=== PATIENT | female | born 2000 | race Caucasian/White ===

== ENCOUNTER → 2019-12-14 09:44 | Outpatient (BNVA) | payer BC, SELFPAY | PROVIDERS: Family Provider Nurse Practitioner Family; PCP Nurse Practitioner Family; Visit Provider Nurse Practitioner Women's Health | DX: Z30.9 Encounter for contraceptive management, unspecified (principal); Z30.46 Encounter for surveillance of implantable subdermal contraceptive | CPT/HCPCS: 81025 ==

== ENCOUNTER 2020-04-07 12:40 | Emergency (ER) | payer BC, SELFPAY ==
[2020-04-07 12:44] VITALS: BP 138/88; PULSE 108; RESP 16; TEMP 36.8; O2SAT 97; BMI 19.8
[2020-04-07 13:13] LABS: Basophils # 0.1 10^3/uL (0.0-0.1); Basophils % 0.6 %; Eosinophils # 0.1 10^3/uL (0.0-0.8); Eosinophils % 0.7 %; Hematocrit 44.7 % (37.0-47.0); Hemoglobin 14.4 g/dL (11.5-15.3); Lymphocytes # 2.2 10^3/uL (1.5-6.5); Lymphocytes % 22.2 %; Mean Corpuscular HGB Conc 32.2 g/dL (30.0-36.0); Mean Corpuscular Hemoglobin 30.3 pg (28.0-34.0); Mean Corpuscular Volume 94.1 fL (81-99); Mean Platelet Volume 9.9 fL (7.4-10.4); Monocytes # 0.6 10^3/uL (0.2-0.9); Monocytes % 5.9 %; Neutrophils # 6.95 10^3/uL (1.8-8.0); Neutrophils % 70.3 %; Nucleated Red Blood Cells % 0 %; Platelet Count 263 10^3/cmm (130-400); Red Blood Count 4.75 10^6/uL (4.1-5.3); Red Cell Distribution Width 12.6 % (12.1-15.1); White Blood Count 9.9 10^3/uL (4.5-13.0)
[2020-04-07 13:44] LABS: Alanine Aminotransferase 11 U/L (0-33); Alkaline Phosphatase 60 IU/L (35-105); Aspartate Amino Transferase 14 U/L (0-32); Blood Urea Nitrogen 9 mg/dL (6-20); Calcium 9.4 mg/dL (8.5-10.5); Carbon Dioxide 21 mmol/L (22-29); Chloride 105 mmol/L (98-107); Globulin 2.5 g/dL (1.3-4.6); Glomerular Filtration Rate 127.5 mL/min (90-130); Glucose 106 mg/dL (65-115); Lipase 22 U/L (13-60); Osmolality Calculated 287 mOsm/kg (285-295); Sodium 139 mmol/L (136-145); Total Bilirubin 0.3 mg/dL (0.15-1.2); Total Protein 7.5 g/dL (6.6-8.7)
[2020-04-07 13:45] LABS: Anion Gap 17.1 (5-19)
[2020-04-07 13:46] LABS: Potassium 4.1 mmol/L (3.5-5.1)
--- NOTE | 2020-04-07 13:57 | PC.NURSE ---
Patient moved to room at this time
--- NOTE | 2020-04-07 14:00 | W.ED.ABDPA2 ---
HPI - Abdominal Pain General: Chief Complaint: Abdominal Pain Stated Complaint: urgent care cecilia wants appendix looked at Time Seen by Provider: 04/07/20 13:52 History of Present Illness: HPI narrative: 19-year-old female patient presents to the emergency department at the request of urgent care. She reports urgent care provider was concerned about her appendix. She was referred to the ER for further testing. She states 1 month onset of abdominal pain. She reports abdominal pain this morning with one vomiting episode. Denies nausea upon exam. 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); Denies chills, diarrhea, dysuria, fever(s), heartburn, hematochezia and hematemesis Related Data: Date of Last Menstrual Period: 04/04/20 Review of Systems General: Reports: 10 or more systems reviewed and unremarkable except in HPI and below Const: Denies: fever(s), chills or diaphoresis Eyes: Denies: blurry vision or eye redness ENMT: Denies: throat pain, dental pain or disequilibrium Card: Denies: chest pain, palpitations or irregular heart rhythm Resp: Denies: dyspnea, productive cough, non-productive cough or wheezing GI: Reports: abdominal pain, nausea (this am but denies upon exam) and 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); Denies: hematemesis, heartburn, diarrhea or hematochezia : Denies: difficulty voiding or dysuria Musc: Denies: back pain Skin/Breast: Denies: rash or pruritus Neuro: Denies: headache(s), weakness in extremities or behavioral changes George/Lymph: Denies: easy bruising PFSH ED PFSH: Medical History (Updated 04/07/20 @ 16:12 by LOGAN Rios) Anxiety Contraceptive management Surgical History No pertinent past surgical history Family History Father Diabetes Hypertension Grandfather Diabetes Paternal grandfather Hypertension Paternal grandfather Maternal grandfather Grandmother Hypertension Maternal grandmother Mother Ovarian cancer, Onset Age: 22 Family history of thyroid problem Denies family history of Colon cancer Heart disease Breast cancer Uterine cancer Social History Additional social history: - Tobacco use: Denies Alcohol use: Denies Drug use: Denies Female Reproductive History: Date of last menstrual period: 04/04/20 Spontaneous abortions: No Physical Exam Const: COMMON NORMALS: no acute distress, patient oriented x3, healthy appearing and alert GENERAL APPEARANCE: cooperative, comfortable and well hydrated HENMT: COMMON NORMALS: normocephalic, Normal external nose present and moist oral mucous membranes HEAD & SCALP: normocephalic NOSE: Normal external nose present Eye: COMMON NORMALS: Equal, round and reactive pupils present and EOMs intact bilaterally GENERAL EYE: appearance normal, both eyes and all related structures PUPIL: Yes Equal, round and reactive pupils present Neck/C-Spine: COMMON NORMALS: full ROM and no lymphadenopathy GENERAL: Yes normal visual inspection and Yes trachea midline CERVICAL SPINE: Yes cervical ROM normal Lymph: LYMPHATIC: no lymphadenopathy noted Chest: COMMONS NORMALS: normal inspection of the chest Resp: COMMON NORMALS: normal respiratory effort and clear to auscultation bilaterally AUSCULTATION: clear to auscultation bilaterally Cardio: COMMON NORMALS: regular rhythm, S1 normal heart sound present and S2 normal heart sound present RHYTHM: regular rhythm HEART SOUNDS: S1 normal heart sound present and S2 normal heart sound present GI: COMMON NORMALS: Normal to inspection, nondistended, normoactive bowel sounds present and Soft to palpation INSPECTION: Yes normal to inspection AUSCULTATION: Yes normoactive bowel sounds PALPATION: Yes Soft to palpation and Yes Tenderness to palpation present (GI) (Positive Chowdary's, negative rebound) Details: RLQ and RUQ : COMMON NORMALS: Yes no CVA tenderness BLADDER/KIDNEY EXAM: Yes no CVA tenderness Back/Pelvis: COMMON NORMALS: no CVA tenderness and thoracic and lumbar spine normal to inspection Extremity: COMMON NORMALS: normal to inspection and capillary refill normal Neuro: COMMON NORMALS: patient oriented x3 and no focal motor deficits SENSORIUM/ORIENTATION: Yes alert Psych: COMMON NORMALS: mental status grossly normal, Normal thought process present and cooperative ACTIVITY/MOTOR BEHAVIOR: Yes appropriate eye contact THOUGHT PROCESS: Normal thought process present Skin: COMMON NORMALS: no rashes or lesions noted and turgor normal GENERAL SKIN EXAM: no rashes or lesions noted and turgor normal Course ED course: 19-year-old female patient presents to the emergency department with right upper and right lower quadrant pain. She was sent to the ED from urgent care for appendicitis work-up. CT scan of the abdomen and pelvis with IV contrast revealed bilateral ovarian cyst and fecal retention. States prior to arrival around noon, ate a sandwich and water without vomiting or nausea. She reports is hungry and wants to leave. She reports does not have a primary care provider, referral to social service to assist with referral process for follow-up. She was advised to return to the emergency department if she developed nausea vomiting despite use of antinausea medication she states has at home. Zofran was offered but she declined upon discharge. I also advised to avoid keto diet. I advised to increase her intake of fruits and vegetables to help with fiber in her diet. This will also help to avoid stomach upset. Vital Signs: Vital signs: Vital Signs Temperature 98.4 F 04/07/20 16:15 Pulse Rate 95 04/07/20 16:15 Respiratory Rate 18 04/07/20 16:15 Blood Pressure 103/62 04/07/20 16:15 Pulse Oximetry 98 04/07/20 16:15 MDM - Abdominal Pain Lab Data: Labs: Lab Results 04/07/20 04/07/20 04/07/20 Range/Units 13:06 13:06 13:06 WBC 9.9 (4.5-13.0) 10^3/ uL RBC 4.75 (4.1-5.3) 10^6/u L Hgb 14.4 (11.5-15.3) g/dL Hct 44.7 (37.0-47.0) % MCV 94.1 (81-99) fL MCH 30.3 (28.0-34.0) pg MCHC 32.2 (30.0-36.0) g/dL RDW 12.6 (12.1-15.1) % Plt Count 263 (130-400) 10^3/c mm MPV 9.9 (7.4-10.4) fL Neut % (Auto) 70.3 % Lymph % (Auto) 22.2 % [place] % (Auto) 5.9 % Eos % (Auto) 0.7 % Baso % (Auto) 0.6 % Neut # (Auto) 6.95 (1.8-8.0) 10^3/u L Lymph # (Auto) 2.2 (1.5-6.5) 10^3/u L [place] # (Auto) 0.6 (0.2-0.9) 10^3/u L Eos # (Auto) 0.1 (0.0-0.8) 10^3/u L Baso # (Auto) 0.1 (0.0-0.1) 10^3/u L Nucleated RBC % (a uto) 0 % Nucleated RBCs # 0.0 /100WBC Sodium 139 (136-145) mmol/L Potassium 4.1 (3.5-5.1) mmol/L Chloride 105 (98-107) mmol/L Carbon Dioxide 21 L (22-29) mmol/L Anion Gap 17.1 (5-19) BUN 9 (6-20) mg/dL Creatinine 0.6 (0.5-0.9) mg/dL GFR Calculation 127.5 (90-130) mL/min Glucose 106 (65-115) mg/dL Calculated Osmolal ity 287 (285-295) mOsm/k g Calcium 9.4 (8.5-10.5) mg/dL Total Bilirubin 0.3 (0.15-1.2) mg/dL AST 14 (0-32) U/L ALT 11 (0-33) U/L Alkaline Phosphata se 60 (35-105) IU/L Total Protein 7.5 (6.6-8.7) g/dL Albumin 5.0 (3.5-5.2) g/dL Globulin 2.5 (1.3-4.6) g/dL Lipase 22 (13-60) U/L Urine Color Urine Appearance Urine pH Ur Specific Gravit y Urine Protein Urine Glucose (UA) Urine Ketones Urine Blood Urine Nitrate Urine Bilirubin Prot Sulfosalicyli c Acd Urine Urobilinogen Ur Leukocyte Cheryle ase Urine RBC (0-2) /hpf Urine WBC (0-5) /hpf Ur Squamous Epith Cells (0-5) /hpf Amorphous Sediment Urine Bacteria (NONE) /hpf Urine Mucus /hpf Urine HCG, Qual Negative (Negative) 04/07/20 04/07/20 Range/Units 13:06 15:00 WBC (4.5-13.0) 10^3/ uL RBC (4.1-5.3) 10^6/u L Hgb (11.5-15.3) g/dL Hct (37.0-47.0) % MCV (81-99) fL MCH (28.0-34.0) pg MCHC (30.0-36.0) g/dL RDW (12.1-15.1) % Plt Count (130-400) 10^3/c mm MPV (7.4-10.4) fL Neut % (Auto) % Lymph % (Auto) % [place] % (Auto) % Eos % (Auto) % Baso % (Auto) % Neut # (Auto) (1.8-8.0) 10^3/u L Lymph # (Auto) (1.5-6.5) 10^3/u L [place] # (Auto) (0.2-0.9) 10^3/u L Eos # (Auto) (0.0-0.8) 10^3/u L Baso # (Auto) (0.0-0.1) 10^3/u L Nucleated RBC % (a uto) % Nucleated RBCs # /100WBC Sodium (136-145) mmol/L Potassium (3.5-5.1) mmol/L Chloride (98-107) mmol/L Carbon Dioxide (22-29) mmol/L Anion Gap (5-19) BUN (6-20) mg/dL Creatinine (0.5-0.9) mg/dL GFR Calculation (90-130) mL/min Glucose (65-115) mg/dL Calculated Osmolal ity (285-295) mOsm/k g Calcium (8.5-10.5) mg/dL Total Bilirubin (0.15-1.2) mg/dL AST (0-32) U/L ALT (0-33) U/L Alkaline Phosphata se (35-105) IU/L Total Protein (6.6-8.7) g/dL Albumin (3.5-5.2) g/dL Globulin (1.3-4.6) g/dL Lipase (13-60) U/L Urine Color Cancelled Yellow Urine Appearance Cancelled Clear Urine pH Cancelled 5 Ur Specific Gravit y Cancelled 1.015 Urine Protein Cancelled Neg Urine Glucose (UA) Cancelled Norm Urine Ketones Cancelled 1+ H Urine Blood Cancelled 3+ H Urine Nitrate Cancelled Negative Urine Bilirubin Cancelled Neg Prot Sulfosalicyli c Acd Cancelled Urine Urobilinogen Cancelled Norm Ur Leukocyte Cheryle ase Cancelled Negative Urine RBC 0-4 H (0-2) /hpf Urine WBC 0-4 H (0-5) /hpf Ur Squamous Epith Cells 5-10 H (0-5) /hpf Amorphous Sediment Not Reportable Urine Bacteria Trace (NONE) /hpf Urine Mucus 1+ /hpf Urine HCG, Qual (Negative) Imaging Data ^: CT Abd/Pel: Radiologist's impression: [place] [id number] CT Scan Report Signed Patient: Janell Goodman Unit #: [id number] : [id number] Age/Sex: 19 / F ADM Date: 04/07/20 Loc: ER Room/Bed: Attending Dr: Ordering Provider/Ordering MD: Marjan Elliott Date of Service: 04/07/20 Procedure(s): CT abdomen pelvis w con* [id number] Accession Number(s): [id number] Report Number: [id number] WS: [id number] CT ABDOMEN AND PELVIS WITH CONTRAST HISTORY: abd pain, RUQ and RLQ TECHNIQUE: Imaging performed of the abdomen and pelvis with IV contrast. Single phase imaging of the abdomen. Coronal and sagittal reformats are submitted. All CT scans at [facility] us e at least one of these dose optimization techniques: automated exposure control; mA and/or kV adjustment per patient size (includes targeted exams where dose is matched to clinical indication); or iterative reconstruction. IV CONTRAST: Omnipaque 300; 95 mL IV. Oral contrast: No DLP: 295.58 mGy.cm COMPARISON: None available. Lower thorax: Lung bases are clear. Heart is normal size. No hiatal hernia. Liver/biliary system: Normal size with no intrahepatic dilatation. Gallbladder: Normal. No gallstones or wall thickening. No pericholecystic fluid. Pancreas: Normal. Spleen: Normal. Adrenal glands: Normal. Right kidney: Normal. Left kidney: Normal. Aorta: Normal. Lymphadenopathy: None. Free fluid: None. GI tract: Partial visualization of the appendix. No evidence for appendicitis. There is mild diffuse constipation. More significant fecal retention towards the rectum. Abdominal wall: Unremarkable abdominal wall. No hernia. Pelvis: Bilateral ovarian cysts. The largest on the LEFT measures 2.5 x 2.9 cm. Uterus is midline and normal. No free fluid or adenopathy. Bones: Unremarkable. CT/CT abdomen pelvis w con* [id number] IMPRESSION: 1. Small bilateral ovarian cysts. 2. The appendix is only partially visualized but normal. 3. No acute abdominal or pelvic abnormalities. Discharge Plan Discharge Patient Disposition: Home Clinical Impression: Constipation Qualifiers: Constipation type: slow transit constipation Qualified Code(s): K59.01 - Slow transit constipation Abdominal pain Qualifiers: Abdominal location: generalized Qualified Code(s): R10.84 - Generalized abdominal pain Ovarian cyst Qualifiers: Laterality: bilateral Qualified Code(s): N83.201 - Unspecified ovarian cyst, right side Condition: Stable Prescriptions: New lactulose 10 gram packet 30 gm PO DAILY PRN (Reason: constipation) Qty: 10 RF: 0 No Action lidocaine-epinephrine (PF) 2 %-1:200,000 solution 3 ml Infiltration ONCE Qty: 1 RF: 0 povidone-iodine [Betadine Swabsticks] 10 % swab 1 applic TOPICAL ONCE Qty: 1 RF: 0 Nexplanon 68 mg implant 1 implant SUBDERMAL ONCE Qty: 1 RF: 0 Nexplanon 68 mg implant SUBDERMAL RF: 0 Discharge Orders: Discharge Order (Routine); Ordered 04/07/20 Ordered By: Marjan Elliott Referrals: Guero Castillo FNP [Primary Care Provider] - Discharge Diet: Clear Liquid Discharge Activity: Limit activity as instructed Patient Instructions: Ovarian Cyst (ED), Constipation (ED), Abdominal Pain (ED) Activity Restrictions/Additional Instructions: Take lactulose as needed for constipation Clear liquid diet for the first 12 hours then advance as tolerated Take antinausea medication you have at home for nausea, return to the emergency department if you continue to experience vomiting with use of antinausea medication. Follow-up with your primary care provider this week, social secretary will be contacting you with an appointment with her primary care provider. Return to the emergency department if you vomit blood, develop worsening right lower quadrant pain when you walk, fever, vomiting or other concerning symptoms Increase intake of vegetables in your diet Stand Alone Forms: Work/School Release Discharge Date/Time: 04/07/20 16:20 Coding Level of Care Code ED Montessori Paraprofessional for Hillaryg Fwd Exam Comprehensive
--- NOTE | 2020-04-07 14:05 | CT_ITS ---
WS: [id number] CT ABDOMEN AND PELVIS WITH CONTRAST HISTORY: abd pain, RUQ and RLQ TECHNIQUE: Imaging performed of the abdomen and pelvis with IV contrast. Single phase imaging of the abdomen. Coronal and sagittal reformats are submitted. All CT scans at [facility] use at least one of these dose optimization techniques: automated exposure control; mA and/or kV adjustment per patient size (includes targeted exams where dose is matched to clinical indication); or iterativ e reconstruction. IV CONTRAST: Omnipaque 300; 95 mL IV. Oral contrast: No DLP: 295.58 mGy.cm COMPARISON: None available. Lower thorax: Lung bases are clear. Heart is normal size. No hiatal hernia. Liver/biliary system: Normal size with no intrahepatic dilatation. Gallbladder: Normal. No gallstones or wall thickening. No pericholecystic fluid. Pancreas: Normal. Spleen: Normal. Adrenal glands: Normal. Right kidney: Normal. Left kidney: Normal. Aorta: Normal. Lymphadenopathy: None. Free fluid: None. GI tract: Partial visualization of the appendix. No evidence for appendicitis. There is mild diffuse constipation. More significant fecal retention towards the rectum. Abdominal wall: Unremarkable abdominal wall. No hernia. Pelvis: Bilateral ovarian cysts. The largest on the LEFT measures 2.5 x 2.9 cm. Uterus is midline and normal. No free fluid or adenopathy. Bones: Unremarkable. CT/CT abdomen pelvis w con* [id number] IMPRESSION: 1. Small bilateral ovarian cysts. 2. The appendix is only partially visualized but normal. 3. No acute abdominal or pelvic abnormalities.
[2020-04-07] MEDS: iohexol 300 mg/mL 100 mL Btl IV (14:28)
[2020-04-07 15:45] LABS: Add Urine Microscopic? YES; Bilirubin Urine Neg (Negative); Blood Urine 3+ (Negative); Glucose Urine UA Norm (Normal); Ketones Urine 1+ (Negative); Leukocyte Esterase Urine Negative (Negative); Nitrate Urine Negative (Negative); Protein Urine Neg (Negative); Specific Gravity, Urine 1.015 (1.005-1.030); Urine Appearance Clear (CLEAR); Urine Color Yellow (Yellow); Urobilinogen Urine Norm (Negative); pH Urine 5 (5-7)
[2020-04-07 15:47] LABS: Add Urine Culture? No; Bacteria Urine TRACE /hpf; Mucus Urine 1+ /hpf; RBC Urine 0-4 /hpf (0-2); WBC Urine 0-4 /hpf (0-5)
[2020-04-07 16:15] VITALS: BP 103/62; PULSE 95; RESP 18; TEMP 36.9; O2SAT 98
--- NOTE | 2020-04-08 10:31 | DCPLANNER ---
nc manager had message to speak with patient about getting established with a primary care physician. nc manager called phone number [phone], unable to speak with patient at this time, a voicemail was left for patient to return case packer phone call.
== END 2020-04-07 16:20 | disposition home or self-care (01) ==
PROVIDERS: Emergency Provider Nurse Practitioner Family; PCP Nurse Practitioner Family
DX: K59.01 Slow transit constipation (principal); N83.201 Unspecified ovarian cyst, right side
CPT/HCPCS: 12345; 36415; 74177; 80053; 81001; 81003; 81025; 83690; 85025; 99283; Q9967

== ENCOUNTER → 2021-04-03 07:59 | Outpatient (BNVA) | payer BC, SELFPAY | PROVIDERS: PCP Nurse Practitioner Family; Visit Provider Nurse Practitioner Women's Health | DX: N92.6 Irregular menstruation, unspecified (principal) | CPT/HCPCS: 81025 ==

== ENCOUNTER → 2021-05-25 09:36 | Outpatient (BNVA) | payer BC, SELFPAY | PROVIDERS: PCP Nurse Practitioner Family; Visit Provider Obstetrics & Gynecology | DX: Z34.90 Encounter for supervision of normal pregnancy, unspecified, unspecified trimester (principal) | CPT/HCPCS: 80307; 84315; 85027; 86592; 86762; 86803; 86850; 86900; 87086; 87340; 87491; 87591; 87806 ==

== ENCOUNTER 2021-11-08 19:51 | Inpatient (IN) | payer BC, SELFPAY ==
--- NOTE | 2021-11-02 09:39 | ANES.PREANE2 ---
Pre-Anesthetic Assessment Height/Weight: Height 1.65 m Epidural Familial anesthetic complications: None Social No alcohol and No tobacco Exam alert, oriented x 3, clear to auscultation bilaterally and regular rate & rhythm Airway Mallampati: Class II Dentition: full Pulmonary None reported CV/HEM None reported None reported Hepatic None reported GI None reported Metabolic None reported Musc/skel None reported Neuropsych None reported Anesthetic Plan ASA status: 2 Anesthesia: Regional (specify below) Risk of > 500 ml blood loss (7ml/kg in children): No Medications/Allergies Home Medications Medication Instructions Recorded Confirmed Last Taken Type PNV 153-FA 400 mcg-om3 35 mg-dha tab PO 04/14/21 05/25/21 Unknown History 25 mg-epa 5 mg-fish oil chew tablet ( Gummies) fluoxetine 20 mg capsule (Prozac) 20 mg PO DAILY 04/14/21 05/25/21 Unknown History Allergies Allergy/AdvReac Type Severity Reaction Status Date / Time No Known Allergies Allergy Verified 05/25/21 10:05 [facility] Anesthesia Medical History Anxiety No pertinent past medical history neghx: htn,dm,thyroid,dvt/pe PCP: none Surgical History No pertinent past surgical history Family History Father Diabetes Hypertension Grandfather Diabetes Paternal grandfather Hypertension Paternal grandfather Maternal grandfather Grandmother Hypertension Maternal grandmother Mother Ovarian cancer, Onset Age: 22 Family history of thyroid problem Denies family history of Colon cancer Heart disease Breast cancer Uterine cancer Social History Additional social history: - Tobacco use: Denies Alcohol use: Denies Drug use: Denies Female Reproductive History Date of last menstrual period: 04/04/20 Spontaneous abortions: No Data Anesthesia Cardiac Studies: No Data to Display
[2021-11-08] VITALS (11 sets, daily range): BP systolic 124–146; BP diastolic 73–97; PULSE 77–106; RESP 17; BMI 26.6
[2021-11-08 21:12] LABS: Add Urine Microscopic? NO; Charge for UA Resulting for Rev
[2021-11-08 21:20] LABS: Bilirubin Urine Neg (Negative); Blood Urine Neg (Negative); Glucose Urine UA Norm (Normal); Ketones Urine Negative (Negative); Leukocyte Esterase Urine Negative (Negative); Nitrate Urine Negative (Negative); Protein Urine Neg (Negative); Specific Gravity, Urine 1.015 (1.005-1.030); Sulfosalicylic Acid Urine Negative (Negative); Urine Appearance Clear (CLEAR); Urine Color Yellow (Yellow); Urobilinogen Urine Norm (Negative); pH Urine 8 (5-7)
[2021-11-08 21:36] LABS: Alanine Aminotransferase 7 U/L (0-33); Albumin Level 3.3 g/dL (3.5-5.2); Alkaline Phosphatase 161 IU/L (35-105); Anion Gap 15.8 (5-19); Aspartate Amino Transferase 22 U/L (0-32); Carbon Dioxide 22 mmol/L (22-29); Chloride 106 mmol/L (98-107); Globulin 2.9 g/dL (1.3-4.6); Glucose 89 mg/dL (65-115); Potassium 3.8 mmol/L (3.5-5.1); Sodium 140 mmol/L (136-145); Total Bilirubin 0.2 mg/dL (0.15-1.2); Total Protein 6.2 g/dL (6.6-8.7)
[2021-11-08 21:37] LABS: Urine Creatinine 35 mg/dL (28-217); Urine Protein Random 5 mg/dL
[2021-11-08] MEDS: miSOPROStol 100 mcg tablet 25 MCG VAGINAL (21:39)
[2021-11-08 21:40] LABS: UPRO/UCREAT Ratio 0.14 mg/mg CR
[2021-11-08 21:41] LABS: Basophils % 0.3 %; Eosinophils # 0.1 10^3/uL (0.0-0.8); Eosinophils % 0.5 %; Hematocrit 28.7 % (37.0-47.0); Hemoglobin 9.1 g/dL (11.5-15.3); Lymphocytes # 1.9 10^3/uL (0.8-4.8); Lymphocytes % 20.3 %; Mean Corpuscular HGB Conc 31.7 g/dL (30.0-36.0); Mean Corpuscular Hemoglobin 25.9 pg (28.0-34.0); Mean Corpuscular Volume 81.8 fl (81-99); Mean Platelet Volume 11.5 fL (7.4-10.4); Monocytes # 0.7 10^3/uL (0.2-0.9); Neutrophils # 6.42 10^3/uL (1.8-7.7); Neutrophils % 69.7 %; Nucleated Red Blood Cells % 0 %; Platelet Count 181 10^3/cmm (130-400); Red Blood Count 3.51 10^6/uL (4.1-5.3); White Blood Count 9.2 10^3/uL (4.0-10.0)
[2021-11-08 21:51] LABS: Blood Urea Nitrogen 4 mg/dL (6-20); Calcium 8.8 mg/dL (8.5-10.5); Glomerular Filtration Rate 199.6 mL/min (90-130); Osmolality Calculated 286 mOsm/kg (285-295)
[2021-11-09] VITALS (95 sets, daily range): BP systolic 105–153; BP diastolic 59–98; PULSE 65–115; RESP 16–18; TEMP 36.6–37.1; O2SAT 99–100
[2021-11-09] MEDS: miSOPROStol 100 mcg tablet 25 MCG VAGINAL (04:35)
--- NOTE | 2021-11-09 07:32 | PM.OPHPUD ---
Labor & Delivery H&P Update Date of Procedure: November 09, 2021 Date H&P Performed: 11/06/21 Changes to previous documentation: None Admission Diagnosis: 21-year-old 1 at 37 weeks estimated gestational age with gestational hypertension with systolic blood pressures greater than 160 Planned procedure: Spontaneous vaginal delivery Other information: The patient is a 21-year-old female who has otherwise been healthy to her . Approximately a month ago, the patient began having severe blood pressures, including systolic blood pressures greater than 160. Her preeclamptic panel was negative. Her 24-hour protein collection was in the mid 200s. Because of her elevated blood pressure, she was placed on labetalol. In the office, her blood pressures continued to have a systolic of greater than 140 despite being on labetalol. She continued to have trace to 1+ protein in her urine in the office. She has also had a grade 3 placenta for the last 2 months. We had a discussion regarding the risk versus the benefits, and elected to proceed with an induction at 37 weeks. Her preeclamptic panel on admission was unremarkable. Her labs of also been unremarkable. Her blood type is O+. Her antibody screen is negative. Her glucose screen was unremarkable. Her GBS was negative. She is rubella immune. The remainder of her labs are within normal limits. Related Problem List Diagnoses (1) Gestational hypertension without significant proteinuria: I anticipate spontaneous vaginal delivery. We have initiated Cytotec 25 mcg x 2 and will consider another dose depending on her cervix and her contraction pattern. I will also consider an amniotomy and her Pitocin depending on the circumstances. (2) 37 weeks gestation of : (3) Anxiety: Continue fluoxetine
[2021-11-09] MEDS: lactated ringers 1,000 ML 999 ML IV (09:00)
[2021-11-09 10:46] LABS: Uric Acid 3.4 mg/dL (2.4-5.7)
[2021-11-09] MEDS: fentaNYL 50 mcg/mL INJ 2mL IVP (12:04)
[2021-11-09] MEDS: dextrose 5%-lactated ringers 1,000 ML 125 ML IV ×2 (12:05→20:40)
--- NOTE | 2021-11-09 14:20 | ANES.PAUD2 ---
Pre-Anesthetic Update Pre-Anesthetic Assessment: Date of Surgery/Procedure: 11/09/21 Any changes to Pre-Anesthetic Assessment?: No Labs Last 48hrs: Short CBC 11/08/21 Range/Units 20:53 WBC 9.2 (4.0-10.0) 10^3/ uL Hgb 9.1 L (11.5-15.3) g/dL Hct 28.7 L (37.0-47.0) % MCV 81.8 (81-99) fl Plt Count 181 (130-400) 10^3/c mm Neut % (Auto) 69.7 % Neut # (Auto) 6.42 (1.8-7.7) 10^3/u L BMP 11/08/21 20:53 Sodium 140 Potassium 3.8 Chloride 106 Carbon Dioxide 22 BUN 4 L Creatinine 0.4 L Glucose 89 Calcium 8.8 Liver Function 11/08/21 Range/Units 20:53 Total Bilirubin 0.2 (0.15-1.2) mg/dL AST 22 (0-32) U/L ALT 7 (0-33) U/L Alkaline Phosphata se 161 H (35-105) IU/L Albumin 3.3 L (3.5-5.2) g/dL Urine 11/08/21 Range/Units 21:05 Urine Color Yellow (Yellow) Urine Appearance Clear (CLEAR) Urine pH 8 H (5-7) Ur Specific Gravit y 1.015 (1.005-1.030) Urine Protein Neg (Negative) Urine Glucose (UA) Norm (Normal) Urine Ketones Negative (Negative) Urine Nitrate Negative (Negative) Urine Bilirubin Neg (Negative) Ur Leukocyte Cheryle ase Negative (Negative) Vitals: Temperature 97.9 F 11/09/21 11:01 Pulse Rate 80 11/09/21 14:04 Pulse Rhythm 11/08/21 20:53 Pulse Strength 3+ Normal 11/09/21 08:00 Respiratory Rate 18 11/09/21 12:04 Respiratory Effort Non-Labored 11/08/21 20:53 Respiratory Depth Normal 11/08/21 20:53 Respiratory Patter n 11/09/21 08:00 Blood Pressure 133/85 11/09/21 14:04 Oxygen Delivery Me thod 11/08/21 20:53 Exam: Pre-Anes Outpt Exam: alert, oriented x 3, clear to auscultation bilaterally and regular rate & rhythm Cardiac Studies: No Data to Display
[2021-11-09] MEDS: oxytocin 30 UNIT/500 ML BAG IV (14:35)
--- NOTE | 2021-11-09 15:04 | P.ANES_ITS ---
Anesthesia Procedures Procedure/Date: 11/09/21 Epidural: Time Out Performed: Yes Consents Signed: Procedure Consent Consent: from patient Lumbar Level: L4-L5 Epidural position: sitting Epidural procedure: sterile prep of area, 1% lidocaine to numb the area, neg for paresthesia, test dose given, 1.5% xylocaine 1:200k epi, placed PCEA, no syste malcolm response, sterile dressing applied and 0.2% Ropiavacaine @ mls/hr (13) Additional Comments: Cap, mask donned by staff in room. Patient sat up. Patient prepped and draped in usual sterile fashion with Chlorprep. 1% lidocaine skin wheel. 17 g Tuohy inserted with stylet. Ligament engaged. Using NANDO w/ saline technique epidural space found at 8 cm, catheter threaded. Negative aspiration. Test dose 1.5% lidocaine with epinephrine 1:200,000 total 3 cc. No response. Sterile dressing. Infusion started. Tolerated well, 1 attempted, good block.?
[2021-11-10] VITALS (32 sets, daily range): BP systolic 121–158; BP diastolic 71–95; PULSE 73–133; RESP 17–18; TEMP 36.5–37.3; O2SAT 97–99
--- NOTE | 2021-11-10 03:50 | P.PCNOB_ITS ---
Delivery Note: Date of delivery: November 10, 2021 Pre-delivery diagnoses: 21-year-old 1 at 37 weeks estimated gestational age with gestational hypertension Post-delivery diagnoses: Status post spontaneous vaginal delivery Procedure: Spontaneous vaginal delivery Delivering Physician: Mark Donald Findings: 100 Pre-Delivery Course: The patient presented to the hospital for induction. She was placed on Cytotec 25 mcg x 2. An amniotomy was performed. She is placed on Pitocin intermittently. Unfortunately, the baby would have late decelerations on Pitocin and had to be stopped several times. She was finally stable on 5 of Pitocin while on oxygen. She progressed to complete without difficulty. Delivery: DELIVERY: The patient progressed to complete without difficulty. She delivered a female with a weight of 7 pounds 10 ounces with Apgars of 8, 10. The baby was delivered from the EITAN position and placed on the mother's abdomen. The cord was then clamped and cut 1 minute after delivery. There was no nuchal cord. There was no meconium. The placenta and 3 vessel cord were delivered intact shortly thereafter. The perineum and vaginal vault were carefully examined. A second-degree posterior midline laceration was noted. It was repaired with 3-0 Vicryl in the usual fashion. Both the mother and the baby were in stable condition. Post-Delivery Status: Good History History History 1 Term 0 Miscarriages/Ectopic 0 0 Living Children 0 A&P Assessment and plan (1) 37 weeks gestation of : Status: Acute (2) Gestational hypertension without significant proteinuria: Status: Acute (3) Spontaneous vaginal delivery: I anticipate routine care. We will continue to monitor her blood pressures, but she has done very well during the hospital stay. I do not anticipate any intervention will be necessary. Status: Acute Coding Level of Care Code Acute Right Of Way Supervisor for Chg Fwd Diagnoses 37 weeks gestation of Z3A.37 Gestational hypertension without significant proteinuria O13.9 Spontaneous vaginal delivery O80
[2021-11-10] MEDS: benzocaine-menthol 78 gm Canister 1 SPRAY TOPICAL (05:40)
[2021-11-10] MEDS: prenatal vitamin Capsule 1 CAP PO (09:05)
[2021-11-10] MEDS: fluoxetine 20 mg Capsule PO (09:05)
[2021-11-10] MEDS: docusate sodium 100 mg Capsule PO ×2 (09:05→17:58)
--- NOTE | 2021-11-10 14:15 | ANE.PACU2 ---
Inpatient post-anesthesia follow up: Airway intact: Yes Vital signs: Temperature 98.0 F Pulse Rate 103 Respiratory Rate 18 Blood Pressure 128/84 Pulse Oximetry 98 Oxygen Delivery Me thod Room Air Oxygen Flow Rate Fraction of Inspir ed Oxygen Hydration adequate: Yes Nausea and vomiting: No Pain level: 1 Mental status: Baseline
[2021-11-10] MEDS: ibuprofen 800 mg tablet PO ×2 (15:05→21:15)
[2021-11-10 15:50] LABS: Hematocrit 28.3 % (37.0-47.0); Hemoglobin 8.8 g/dL (11.5-15.3); Mean Corpuscular HGB Conc 31.1 g/dL (30.0-36.0); Mean Corpuscular Hemoglobin 25.9 pg (28.0-34.0); Mean Corpuscular Volume 83.2 fl (81-99); Mean Platelet Volume 11.8 fL (7.4-10.4); Platelet Count 179 10^3/cmm (130-400); Red Cell Distribution Width 14.3 % (12.1-15.1); White Blood Count 20.5 10^3/uL (4.0-10.0)
[2021-11-11 04:27] VITALS: BP 118/81; PULSE 77; RESP 16; TEMP 36.9; O2SAT 98
--- NOTE | 2021-11-11 06:55 | P.DS_ITS ---
Discharge Providers VETERINARY EPIDEMIOLOGIST Date of Admission: 11/08/21 19:51 Date of Discharge: 11/12/21 Attending Provider at Admission: Mark Donald Attending Provider at Discharge: Mark Donald MD Primary Care Provider: Mark Donald Diagnoses at Discharge Discharge Diagnosis (1) Gestational hypertension without significant proteinuria: Status: Resolved (2) 37 weeks gestation of : Status: Resolved (3) Anxiety: Status: Acute Reason for Visit Reason for Visit: LATISHA 11/26/ Hospital Course Hospital Course The patient was a 37-week estimated gestational age female with gestational hypertension who presented to the hospital for induction. She was started on Cytotec 25 mcg multiple times. An amniotomy was performed. She progressed to complete and had an unremarkable delivery of a healthy-appearing . Her course was unremarkable. Her pain was well controlled. Her bleeding was within normal limits. She bottle-fed her baby. Of note, she had minimal symptoms of preeclampsia during her hospital stay. Her blood pressures were actually within normal limits most of the time while she was laboring. Information Peripartum Data: Infant Delivery Method: Vaginal Physical Exam Narrative: The patient is alert. She appears comfortable. Her heart has a regular rate and rhythm with no murmurs appreciated. Lungs are clear to auscultation bilaterally. Her fundus is firm and below the umbilicus. Urinary Catheter Management: [place]: Cath Placed During This Visit: yes, but has since been removed by the nurse Reason for Continuing Indwelling Catheter: Decision to DC Catheter Urinary Catheter Date of Insertion: 11/09/21 Urinary Catheter Time of Insertion: 15:30 Date Urinary Catheter Removed: 11/10/21 Time Urinary Catheter Discontinued: 03:00 History History History 1 Term 0 Miscarriages/Ectopic 0 0 Living Children 0 Discharge Data Studies Completed and Pending Laboratory Results WBC 20.5 10^3/uL (4.0-10.0) H 11/10/21 15:28 RBC 3.40 10^6/uL (4.1-5.3) L 11/10/21 15:28 Hgb 8.8 g/dL (11.5-15.3) L 11/10/21 15:28 Hct 28.3 % (37.0-47.0) L 11/10/21 15:28 MCV 83.2 fl (81-99) 11/10/21 15: MCH 25.9 pg (28.0-34.0) L 11/10/21 15:28 MCHC 31.1 g/dL (30.0-36.0) 11/10/21 15: RDW 14.3 % (12.1-15.1) 11/10/21 15:28 Plt Count 179 10^3/cmm (130-400) 11/10/21 15: MPV 11.8 fL (7.4-10.4) H 11/10/21 15:28 Neut % (Auto) 69.7 % 11/08/21 20:53 Lymph % (Auto) 20.3 % 11/08/21 20:53 [place] % (Auto) 8.0 % 11/08/21 20:53 Eos % (Auto) 0.5 % 11/08/21 20:53 Baso % (Auto) 0.3 % 11/08/21 20:53 Neut # (Auto) 6.42 10^3/uL (1.8-7.7) 11/08/21 20:53 Lymph # (Auto) 1.9 10^3/uL (0.8-4.8) 11/08/21 20:53 [place] # (Auto) 0.7 10^3/uL (0.2-0.9) 11/08/21 20:53 Eos # (Auto) 0.1 10^3/uL (0.0-0.8) 11/08/21 20:53 Baso # (Auto) 0.0 10^3/uL (0.0-0.1) 11/08/21 20:53 Nucleated RBC % (auto) 0 % 11/08/21 20:53 Nucleated RBCs # 0.0 /100WBC 11/08/21 20:53 Sodium 140 mmol/L (136-145) 11/08/21 20:53 Potassium 3.8 mmol/L (3.5-5.1) 11/08/21 20:53 Chloride 106 mmol/L (98-107) 11/08/21 20:53 Carbon Dioxide 22 mmol/L (22-29) 11/08/21 20:53 Anion Gap 15.8 (5-19) 11/08/21 20:53 BUN 4 mg/dL (6-20) L 11/08/21 20:53 Creatinine 0.4 mg/dL (0.5-0.9) L 11/08/21 20:53 GFR Calculation 199.6 mL/min (90-130) H 11/08/21 20:53 Glucose 89 mg/dL (65-115) 11/08/21 20:53 Calculated Osmolality 286 mOsm/kg (285-295) 11/08/21 20:53 Uric Acid 3.4 mg/dL (2.4-5.7) 11/08/21 20:53 Calcium 8.8 mg/dL (8.5-10.5) 11/08/21 20:53 Total Bilirubin 0.2 mg/dL (0.15-1.2) 11/08/21 20:53 AST 22 U/L (0-32) 11/08/21 20:53 ALT 7 U/L (0-33) 11/08/21 20:53 Alkaline Phosphatase 161 IU/L (35-105) H 11/08/21 20:53 Total Protein 6.2 g/dL (6.6-8.7) L 11/08/21 20:53 Albumin 3.3 g/dL (3.5-5.2) L 11/08/21 20:53 Globulin 2.9 g/dL (1.3-4.6) 11/08/21 20:53 Urine Color Yellow (Yellow) 11/08/21 21:05 Urine Appearance Clear (CLEAR) 11/08/21 21:05 Urine pH 8 (5-7) H 11/08/21 21:05 Ur Specific [place] 1.015 (1.005-1.030) 11/08/21 21:05 Urine Protein Neg (Negative) 11/08/21 21:05 Urine Glucose (UA) Norm (Normal) 11/08/21 21:05 Urine Ketones Negative (Negative) 11/08/21 21:05 Urine Blood Neg (Negative) 11/08/21 21:05 Urine Nitrate Negative (Negative) 11/08/21 21:05 Urine Bilirubin Neg (Negative) 11/08/21 21:05 Prot Sulfosalicylic Acd Negative (Negative) 11/08/21 21:05 Urine Urobilinogen Norm mg/dL (Negative) 11/08/21 21:05 Ur Leukocyte Esterase Negative (Negative) 11/08/21 21:05 U Random Total Protein 5 mg/dL 11/08/21 21:05 Urine Creatinine 35 mg/dL (28-217) 11/08/21 21:05 Protein/Creatinin Ratio 0.14 mg/mg CR 11/08/21 21:05 Vitals Last Vital Signs Temp 98.4 F 11/11/21 04:27 Pulse 77 11/11/21 04:27 Resp 16 11/11/21 04:27 BP 118/81 11/11/21 04:27 Pulse Ox 98 11/11/21 04:27 Discharge Plan Discharge Patient Disposition: Home Condition: Stable Prescriptions: New ibuprofen 800 mg Tablet 800 mg PO TID Qty: 45 0RF escitalopram oxalate 10 mg Tablet 10 mg PO DAILY Qty: 100 0RF Continued Gummies 400 mcg-35 mg- 25 mg-5 mg tablet,chewable PO 0RF Discontinued fluoxetine [Prozac] 20 mg capsule 20 mg PO DAILY 0RF Discharge Orders: Discharge Order (Routine); Ordered 11/11/21 Ordered By: Mark Donald Referrals: Mark Donald MD [Physician] - 12/23/21 10:00 am (6 week post- appointment 12/23/21 @10) Discharge Diet: Usual diet Discharge Activity: Limit activity as instructed Patient Instructions: Depression (DC), Bleeding (DC), Preeclampsia and Eclampsia After Delivery (GEN), OB Discharge Report, OB Food/Drug Interaction Guide, Opioid Safety, OB Home Care, OB Vaginal Deliveries Discharge Attestations VETERINARY EPIDEMIOLOGIST Time Spent in Discharge Care*: greater than 30 min Coding Level of Care Code Acute Reclaimer for Chg Fwd Diagnoses Gestational hypertension without significant proteinuria O13.9 37 weeks gestation of Z3A.37 Anxiety F41.9
[2021-11-11] MEDS: ibuprofen 800 mg tablet PO (09:11)
[2021-11-11] MEDS: docusate sodium 100 mg Capsule PO (09:11)
[2021-11-11] MEDS: prenatal vitamin Capsule 1 CAP PO (09:11)
[2021-11-11] MEDS: escitalopram 10 mg Tablet PO (09:13)
[2021-11-11 09:20] VITALS: BP 120/78; PULSE 72; RESP 18; O2SAT 98
== END 2021-11-11 09:45 | disposition home or self-care (01) | DRG 807 ==
PROVIDERS: Admitting Provider Obstetrics & Gynecology; PCP Nurse Practitioner Family; Visit Provider Family Medicine
DX: O13.4 Gestational [pregnancy-induced] hypertension without significant proteinuria, complicating childbirth (principal); Z37.0 Single live birth; O99.344 Other mental disorders complicating childbirth; O70.1 Second degree perineal laceration during delivery; Z3A.37 37 weeks gestation of pregnancy; F41.9 Anxiety disorder, unspecified
CPT/HCPCS: 12345; 36415; 51702; 59025; 59409; 80053; 81003; 82570; 84156; 84550; 85025; 85027; 96374; J2795; J3010